=== PATIENT | male | born 1930 | race Caucasian/White ===

== ENCOUNTER 2019-08-18 00:35 | Emergency (ER) | payer MEDICARE ==
[~2019-08-18] VITALS: Ht 195.6 cm; Wt 108.9 kg
[2019-08-18 01:10] LABS: BASOPHILS ABSOLUTE AUTO 0.03 K/mm3 (0.00-0.23); BASOPHILS PERCENT AUTO 0 % (0-2); EOSINOPHILS PERCENT AUTO 1 % (0-6); Hematocrit 38.9 % (37.0-53.0); Hemoglobin 12.9 g/dL (13.5-17.5); IMMATURE GRAN ABSOLUTE AUTO 0.03 K/mm3 (0.00-0.10); IMMATURE GRAN PERCENT AUTO 0 % (0-1); LYMPHOCYTES ABSOLUTE AUTO 1.23 K/mm3 (0.84-5.20); LYMPHOCYTES PERCENT AUTO 13 % (21-46); MONOCYTES ABSOLUTE AUTO 0.54 K/mm3 (0.16-1.47); MONOCYTES PERCENT AUTO 6 % (4-13); Mean Corpuscular HGB 32.3 pg (26.0-34.0); Mean Corpuscular HGB Conc 33.2 g/dL (31.5-36.5); Mean Corpuscular Volume 97 fL (80-100); Mean Platelet Volume 10.5 fL (9.1-12.4); NEUTROPHILS ABSOLUTE AUTO 7.37 K/mm3 (1.96-9.15); NEUTROPHILS PERCENT AUTO 79 % (41-73); Platelet Count 172 K/mm3 (150-400); RDW Coefficient Variation 12.9 % (11.7-14.2); RDW Standard Deviation 46.2 fL (35.1-46.3)
[2019-08-18 01:24] LABS: International Normalized Ratio 1.25
[2019-08-18] MEDS ORDERED: ATOR40TA (01:24)
[2019-08-18] MEDS ORDERED: FURO40 PO (01:24)
[2019-08-18] MEDS ORDERED: Aspir 8181 MG PO (01:24)
[2019-08-18] MEDS ORDERED: METO25 (01:25)
[2019-08-18] MEDS ORDERED: Hair, Skin & N1 EACH PO (01:25)
[2019-08-18] MEDS ORDERED: LOSA50 PO (01:25)
[2019-08-18] MEDS ORDERED: POLYETHYLENE G500 G1 PO (01:25)
[2019-08-18] MEDS ORDERED: NITR.4SL SL (01:26)
[2019-08-18] MEDS ORDERED: DOC250 (01:26)
[2019-08-18] MEDS ORDERED: Vitamin D2000 UNIT (01:26)
[2019-08-18] MEDS ORDERED: PYRI100 PO (01:26)
[2019-08-18] MEDS ORDERED: TAMS.4ER PO (01:27)
[2019-08-18 01:31] LABS: Alanine Aminotransfer (ALT/SGP 39 U/L (12-78); Albumin, Blood 3.8 g/dL (3.4-5.0); Albumin/Globulin Ratio 1.1 (0.8-1.8); Alk Phos 142 U/L (50-136); Anion Gap 6 mmol/L (6-16); Aspartate Aminotrans (AST/SGOT 33 U/L (12-37); Bilirubin, Total 0.7 mg/dL (0.1-1.0); Blood Urea Nitrogen 23 mg/dL (8-24); Bun/Creatinine Ratio 19.3 (12.0-20.0); CO2, Blood 27 mmol/L (21-32); Calcium, Blood 9.5 mg/dL (8.5-10.1); Chloride, Blood 109 mmol/L (98-108); Creatinine, Blood 1.19 mg/dL (0.60-1.20); Globulin, Blood 3.5 g/dL (2.2-4.0); Glomerular Filtration Rate >60 (60-); Glucose, Blood 130 mg/dL (70-99); Potassium, Blood 3.5 mmol/L (3.5-5.5); Sodium, Blood 142 mmol/L (136-145); Total Protein, Blood 7.3 g/dL (6.4-8.2)
== END 2019-08-18 03:03 | disposition short-term general hospital (02) ==
LOC: ER 00:35
PROVIDERS: Emergency Medicine
DX: I63.519 Cerebral infarction due to unspecified occlusion or stenosis of unspecified middle cerebral artery (principal); I10 Essential (primary) hypertension; I25.10 Atherosclerotic heart disease of native coronary artery without angina pectoris; E78.00 Pure hypercholesterolemia, unspecified; Z88.8 Allergy status to other drugs, medicaments and biological substances; Z79.899 Other long term (current) drug therapy; Z79.82 Long term (current) use of aspirin
CPT/HCPCS: 36415; 70450; 80053; 85025; 85610; 93005; 93010; 99285-25